=== PATIENT | female | born 1975 | race Two or more races ===

== ENCOUNTER 2024-08-26 11:18 | Emergency (ER) | payer BC, OTHER ==
[~2024-08-26] VITALS: Ht 175.3 cm; Wt 100.0 kg
[2024-08-26 11:45] VITALS: BP 124/83; PULSE 73; RESP 18; TEMP 97.8; O2SAT 96
[2024-08-26] MEDS ORDERED: NAPR-957 PO (13:14)
== END 2024-08-26 13:23 | disposition home or self-care (01) ==
LOC: ER 11:22
DX: S83.91XA Sprain of unspecified site of right knee, initial encounter (principal); M25.461 Effusion, right knee; W18.39XA Other fall on same level, initial encounter; Y93.89 Activity, other specified; Y92.89 Other specified places as the place of occurrence of the external cause; Y99.8 Other external cause status
CPT/HCPCS: 73562